=== PATIENT | male | born 1950 | race Caucasian/White ===

== ENCOUNTER 2016-09-29 08:36 | Day surgery (SDC) | payer BC ==
[~2016-09-29] VITALS: Ht 182.9 cm; Wt 104.5 kg
[2016-09-29] MEDS ORDERED: ELIQUIS 5MG PO (08:57)
[2016-09-29] MEDS ORDERED: LOTENSIN40 MG PO (08:58)
[2016-09-29] MEDS ORDERED: LASIX 20MG TABL20 MG PO (08:58)
[2016-09-29] MEDS ORDERED: CARTIA XT120 MG PO (08:58)
[2016-09-29] MEDS ORDERED: MULTI VITAMINS1 TAB PO (08:59)
[2016-09-29] MEDS ORDERED: MELATONIN5 M1 PO (08:59)
[2016-09-29] MEDS ORDERED: MULTAQ400 MG PO (09:09)
[2016-09-29 09:22] VITALS: BP 141/88; PULSE 65; TEMP 97.8
== END 2016-09-29 09:26 | disposition home or self-care (01) ==
LOC: COL.CAR 08:36
DX: I48.91 Unspecified atrial fibrillation (principal); Z53.09 Procedure and treatment not carried out because of other contraindication; I10 Essential (primary) hypertension; Z79.899 Other long term (current) drug therapy; Z79.01 Long term (current) use of anticoagulants

== ENCOUNTER 2019-01-05 10:01 | Outpatient (CLI) | payer BC ==
--- NOTE | 2019-01-04 19:43 | NUR ---
LEFT MESSAGE IN REGARDS TO PROCEDURE INSTRUCTIONS AND RETURN PHONE CALL TO REVIEW MEDICAL HISTORY.
[~2019-01-05] VITALS: Ht 183 cm; Wt 99.5 kg
[~2019-01-05 10:01] MED LIST: CARTIA XT120 MG PO; ELIQUIS 5MG PO; LASIX 20MG TABL20 MG PO; LOTENSIN20 MG PO; MELATONIN5 M1 SL; MULTAQ400 MG PO
[2019-01-05] MEDS ORDERED: ASPIRIN 81M81 MG/TA2 PO (11:00)
[2019-01-05] MEDS ORDERED: TOPROL XL 25MG25 MG PO (11:00)
[2019-01-05] MEDS ORDERED: TYLENOL 500MG500 MG PO (11:02)
[2019-01-05 11:04] VITALS: BP 122/69; PULSE 64; TEMP 98.1
[2019-01-05] MEDS ORDERED: MULTI VITAMINS1 TAB PO (11:10)
[2019-01-05] MEDS ORDERED: CEPHALEXIN500 M1 PO (11:53)
[2019-01-05 12:24] VITALS: BP 139/71; PULSE 72
--- NOTE | 2019-01-05 12:29 | NUR ---
Discharge instructions given to pt.pt verbalizes understanding.Pt escorted out by this nurse.
== END 2019-01-05 12:29 | disposition home or self-care (01) ==
LOC: COL.CAR 10:01
DX: I48.0 Paroxysmal atrial fibrillation (principal); I10 Essential (primary) hypertension

== ENCOUNTER 2020-02-23 06:33 | Day surgery (SDC) | payer BC ==
[~2020-02-23] VITALS: Ht 180.3 cm; Wt 97.1 kg
[~2020-02-23 06:33] MED LIST changes: +ASPIRIN 81M81 MG/TA2 PO; +CEPHALEXIN500 M1 PO; +MULTI VITAMINS1 TAB PO; +TOPROL XL 25MG25 MG PO; +TYLENOL 500MG500 MG PO
[2020-02-23] MEDS ORDERED: ELIQUIS 5MG PO (06:58)
--- NOTE | 2020-02-23 06:59 | NUR ---
Dr. Castrejon is called to notify her that the patient did not stop his Eliquis. His last dose of Eliquis was yesterday AM.
[2020-02-23 07:01] VITALS: BP 137/90; PULSE 66; TEMP 98.2
[2020-02-23 08:10] VITALS: BP 134/96; PULSE 65
--- NOTE | 2020-02-23 08:10 | NUR ---
Returns to [facility] [address] per cart and is awake and alert. Transfers from cart to recliner with standby assist. IV fluids infusing. Denies abdominal pain or nausea. Drinking orange juice.
[2020-02-23 08:25] VITALS: BP 132/91; PULSE 68
--- NOTE | 2020-02-23 08:25 | NUR ---
Tolerates juice. Talking to spouse.
[2020-02-23 08:40] VITALS: BP 152/92; PULSE 59
--- NOTE | 2020-02-23 08:40 | NUR ---
IV discontinued and site free of redness. Patient dresses self. Continues to deny pain or nausea.
--- NOTE | 2020-02-23 08:49 | NUR ---
Dismissal instructions given to patient and spouse and voices understanding of these. Provided office number for questions or concerns.
--- NOTE | 2020-02-23 08:53 | NUR ---
Patient dismissed to home driven by spouse and taken to the front door per wheelchair and assisted into vehicle with instructions in hand.
== END 2020-02-23 08:53 | disposition home or self-care (01) ==
LOC: SDCO 06:33
DX: Z12.11 Encounter for screening for malignant neoplasm of colon (principal); K57.30 Diverticulosis of large intestine without perforation or abscess without bleeding; Z79.01 Long term (current) use of anticoagulants; I10 Essential (primary) hypertension; I48.91 Unspecified atrial fibrillation; E66.9 Obesity, unspecified; I47.1 Supraventricular tachycardia; Z79.82 Long term (current) use of aspirin
CPT/HCPCS: J2704; J7120

== ENCOUNTER → 2021-05-03 | Outpatient (CLI) | payer BC | LOC: COL.RAD 05-01 09:00 | DX: M51.36 Other intervertebral disc degeneration, lumbar region (principal); M47.816 Spondylosis without myelopathy or radiculopathy, lumbar region; M48.061 Spinal stenosis, lumbar region without neurogenic claudication ==

== ENCOUNTER → 2021-07-15 | Outpatient (CLI) | payer MEDICARE | LOC: MHCPAIN 09:41 | DX: M47.816 Spondylosis without myelopathy or radiculopathy, lumbar region (principal); M53.3 Sacrococcygeal disorders, not elsewhere classified; M54.16 Radiculopathy, lumbar region | CPT/HCPCS: G0463 ==

== ENCOUNTER → 2021-07-25 | Outpatient (CLI) | payer MEDICARE | LOC: MHCPAIN 08:49 | DX: M47.817 Spondylosis without myelopathy or radiculopathy, lumbosacral region (principal); M53.3 Sacrococcygeal disorders, not elsewhere classified; M54.16 Radiculopathy, lumbar region | CPT/HCPCS: J1100; Q9967 ==

== ENCOUNTER → 2021-08-13 | Outpatient (CLI) | payer MEDICARE, OTHER | LOC: MHCPAIN 10:07 | DX: M47.896 Other spondylosis, lumbar region (principal); M53.3 Sacrococcygeal disorders, not elsewhere classified; M54.16 Radiculopathy, lumbar region; M48.062 Spinal stenosis, lumbar region with neurogenic claudication | CPT/HCPCS: G0463 ==